=== PATIENT | female | born 1955 | race Caucasian/White ===

== ENCOUNTER 2017-07-16 15:26 | Emergency (ER) | payer BC ==
[~2017-07-16] VITALS: Ht 165.1 cm; Wt 86.2 kg
[~2017-07-16 15:26] MED LIST: NORCO 5-325 TA1 EACH PO
[2017-07-16] MEDS ORDERED: ULTRAM 50MG TAB50 MG PO (17:10)
[2017-07-16 17:45] VITALS: BP 151/89
== END 2017-07-16 17:50 | disposition home or self-care (01) ==
LOC: ER 15:26
DX: M25.562 Pain in left knee (principal); Z90.49 Acquired absence of other specified parts of digestive tract; Z96.651 Presence of right artificial knee joint